=== PATIENT | female | born 1985 | race Caucasian/White ===

== ENCOUNTER → 2016-05-31 | Outpatient (CLI) | payer OTHER ==
[~2016-05-31] MED LIST: BOTULINUM INJ 100 UNITS (J0585) XX ONE; diazePAM 5 MG TAB As Ordered ONE; oxyCODONE 5MG TAB As Ordered ONE
--- NOTE | 2016-06-03 01:29 | ECWPNPC ---
PATIENT NAME: ARBEN ROACH : 1985 GENDER: FEMALE VISIT DATE: 05/31/2016 DISCHARGE DATE: 05/31/16 1043 VISIT LOCKED DATE TIME: PHYSICIAN: MARYJANE ETIENNE RESOURCE: MARYJANE ETIENNE REASON FOR APPOINTMENT 1. BTX HISTORY OF PRESENT ILLNESS HISTORY OF PRESENT ILLNESS: PAIN THE PATIENT DESCRIBES THE PAIN... FALL RISK SCREENING: SCREENING :ONE FALL WITH INJURY IN THE PAST YEAR TRIPPED OVER TOYS ON STEPS AND FELL DOWN 16 STEPS CURRENT MEDICATIONS TAKING KLONOPIN 1 MG TABLET 1 TABLET ORALLY TWICE A DAY, NOTES: 5 DAYS AGO TAKING XANAX 2 MG TABLET 1 TABLET ORALLY PRN, NOTES: @0700 TAKING AMBIEN 10 MG TABLET 1 TABLET AT BEDTIME NEEDED ORALLY DAILY AT HS, NOTES: 05/30/16@2145 TAKING TRAZODONE HCL 200 MG TABLET 1 TABLET AT BEDTIME ORALLY ONCE A DAY, NOTES: 05/30/16@2130 TAKING FLEXERIL 10 MG TABLET 1 TABLET ORALLY THREE TIMES A DAY, NOTES: 05/30/16@1800 TAKING LYRICA 75 MG CAPSULE 1 CAPSULE ORALLY QID, NOTES: 05/30/16@1800 TAKING VITAMIN D 5000 CAPSULE 1 CAPSULE ORALLY ONCE A DAY, NOTES: 05/30/16@0830 TAKING LIDOCAINE 5 % PATCH 1 PATCH TO INTACT SKIN REMOVE AFTER 12 HOURS EXTERNALLY ONCE A DAY, NOTES: 05/30/16@1200 TAKING MULTI FOR HER 50+ TABLET 1 TAB ORALLY BID, NOTES: 05/30/16@0830 TAKING OXYCODONE HCL 5 MG TABLET 1 TABLET ORALLY EVERY 6 HRS, NOTES: 05/30/16@2300 TAKING MAGNESIUM 250 MG TABLET 1 TABLET WITH A MEAL ORALLY ONCE A DAY, NOTES: 05/30/16@0830 NOT-TAKING PERCOCET 5-325 MG TABLET 1 TABLET NEEDED ORALLY EVERY4- 6 HRS, NOTES: 12-07-15 1000 NOT-TAKING VOLTAREN 1 % GEL EXTERNALLY APPLY TO PAINFUL AREAS 4-6 TIMES DAILY NEEDED, NOTES: 12-07-15 0100 NOT-TAKING CYMBALTA 30 MG CAPSULE DELAYED RELEASE PARTICLES 1 CAPSULE ORALLY TWICE A DAY NOT-TAKING PREDNISONE TAPER 2.5 MG TABLET 1 TABLET ORALLY ONCE A DAY NOT-TAKING PREDNISONE 1 TAB ORAL , NOTES: DOSE PACK MEDICATION LIST REVIEWED AND RECONCILED WITH THE PATIENT PAST MEDICAL HISTORY SYSTEMIC LUPUS COMPLEX REGIONAL PAIN STNDROME DISC AND BONE DEGENERATION NERVE DAMAGE LEFT SIDE AND RIGHT LEG ARTHRITIS SPINAL STEOSIS AND BULGING DISCS TORN MUSCLES LIGAMENTS FX T7 ANXIETY INSOMNIA PTSD LEFT SHOULDER CYST CARPEL ROBERT BIALTERAL WRIST PINCHED NERVE IN LEFT ELBOW ALLERGIES THIOTHIXENE: STROKE LIKE SYMPTOMS: ALLERGY SOCIAL HISTORY GENERAL: TOBACCO USE ARE YOU A:NONSMOKER LEARNING BARRIERS / SPECIAL NEEDS ORIENTED TO PLAN OF CARE: PATIENT, PAIN MANAGEMENT PATIENT, ORIENTED TO PLAN OF CARE: PATIENT, PAIN MANAGEMENT PATIENT. NEW PATIENT PAIN DIARY TODAY'S VISITNOTES FROM 0-10, WHAT LEVEL IS YOUR PAIN TODAY?0 PAIN CLINIC PFS, CLERGY, PUBLIC HEALTH REFERRALS PFS REFERRAL NEEDED?NO CLERGY REFERRAL NEEDED?NO PUBLIC HEALTH REFERRAL NEEDED?NO WAS THE PROVIDER NOTIFIED OF ANY PERTINENT INFO?NO PFS REFERRAL NEEDED?NO CLERGY REFERRAL NEEDED?NO PUBLIC HEALTH REFERRAL NEEDED?NO WAS THE PROVIDER NOTIFIED OF ANY PERTINENT INFO?NO REVIEW OF SYSTEMS CONSTITUTIONAL: ANY CHANGE IN YOUR MEDICAL CONDITION? YES, HIP PAIN . CHILLS NO . FEVER NO . INFECTION: DO YOU HAVE NEW INFECTIONS? NO . DO YOU HAVE HISTORY OF MRSA? NO . MUSCULOSKELETAL: ANY NEW PATTERNS OF PAIN OR NUMBNESS? YES,HANDS CONTORTING, NECK SHARP PAIN, SCALP TINGLING . GASTROENTEROLOGY: ANY NEW CHANGE IN BOWEL CONTROL? NO . GENITOURINARY: ANY NEW CHANGE IN BLADDER CONTROL? NO . IS THERE A CHANCE YOU COULD BE ? NO . HEMATOLOGY/LYMPH: DO YOU TAKE ANY BLOOD THINNERS? (FOR EXAMPLE- COUMADIN, PLAVIX, AGGRENOX, PLATEL, PRADAXA, OR XARELTO) NO . WHEN WAS YOUR LAST DOSE? DATE: TIME: . NEUROLOGY: HAVE YOU FALLEN IN THE PAST 6 MONTHS? YES . ANY NEW EXTREMITY NUMBNESS OR WEAKNESS? NO . CARDIOLOGY: DO YOU HAVE A PACEMAKER OR DEFIBRILLATOR? NO . RESPIRATORY: HAVE YOU BEEN SICK IN THE PAST WEEK? NO . FEVER NO . FLU LIKE SYMPTOMS? NO . COUGH NO . INTEGUMENTARY: DO YOU HAVE ANY RASHES OR OPEN SORES? NO . ALLERGIC/IMMUNO: ARE YOU ALLERGIC TO SHELLFISH OR IV DYE? NO . ANY NEW ALLERGIES? NO . PSYCHIATRIC: DO YOU HAVE THOUGHTS OF HURTING YOURSELF OR SOMEONE ELSE? NO . ARE YOU ABUSED, NEGLECTED, OR IN AN UNSAFE ENVIRONMENT? NO . ENDOCRINOLOGY: ARE YOU DIABETIC? NO . OTHER: DO YOU NEED ANY PRESCRIPTIONS? NO . IF YES, PLEASE LIST: ____ . ANY NEW PROBLEMS WITH YOUR MEDICATIONS? NO . WHEN DID YOU LAST EAT? ____05/30/16@0000 . WHEN DID YOU LAST DRINK? ____05/31/16@0700 . WHAT DID YOU LAST DRINK? ____WATER . NAME OF PERSON DRIVING YOU HOME? ____TANIKA MARLEY . DO YOU HAVE ANY OTHER QUESTIONS OR CONCERNS LAST BOTOX INJECTION HAD AN ISSUE WITH RIGHT EYE . REVIEWED BY: PROVIDER: . VITAL SIGNS WT 238 LBS, HT 70 IN, BMI 34.15 INDEX, BP 111/59 MM HG, HR 87 /MIN, RR 16 /MIN, TEMP 96.7 F, OXYGEN SAT % 100%, NA INITIALS SC 09:09, REVIEWED BY: VD. ASSESSMENTS CHRONIC MIGRAINE WITHOUT AURA, NOT INTRACTABLE, WITHOUT STATUS MIGRAINOSUS - G43.709 (PRIMARY) PROCEDURES PN BOTOX INJECTIONS SUBSEQUENT INJECTIONS PRE PROCEDURE DIAGNOSIS CHRONIC MIGRAINE HEADACHES POST PROCEDURE DIAGNOSIS CHRONIC MIGRAINE HEADACHES PROCEDURE BOTOX INJECTION AT THE HEAD, NECK AND SHOULDERS SURGEON DR. MARYJANE ETIENNE ORDER CHECKER NONE ANESTHESIA NONE PRE PROCEDURE NOTE THE PATIENT HAS HISTORY OF CHRONIC MIGRAINE HEADACHES. I EVALUATE THE PATIENT AND REVIEWED THE CHART. I WENT OVER THE RISKS, ALTERNATIVES, AND BENEFITS ASSOCIATED WITH THIS PROCEDURE. THE PATIENT WOULD LIKE TO PROCEED AND GIVE CONSENT TO PERFORMED THE PROCEDURE. THE PATIENT DENIES UNEXPLAINABLE WEIGHT LOSS, FEVER, CHILLS, OR NEW CHANGES IN URINARY OR BOWEL CONTROL. THE PATIENT DID A BOTOX INJECTION AT THE HEAD, NECK AND SHOULDERS IN NOVEMBER AND EXPRESSED MORE THAN 50% REDUCTION ON THE FREQUENCY AND INTENSITY OF THE HEADACHES. UNFORTUNATELY SHE WAS NOT ABLE TO REPEAT THE BOTOX UNTIL NOW. HER HEADACHES HAVE RETURNED. SHE IS HAVING 30 HEADACHES PER MONTH. THE PATIENT EXPRESS THAT THE USE OF BOTOX HAS REDUCE SIGNIFICANTLY THE SEVERITY OF THE HEADACHES IN THE PAST AND EXPRESSED THAT WANT TO RECEIVE THIS PROCEDURE AGAIN TODAY. DESCRIPTION OF PROCEDURE THE PATIENTS WAS BROUGHT TO THE PROCEDURE ROOM AND PLACED IN THE SUPINE POSITION. I CHECKED LATERALITY AND THE AREAS WHERE THE PROCEDURE WAS GOING TO BE PERFORMED WITH THE PATIENT AND THE SUPPORTING STAFF AT THE MOMENT OF THE TIME OUT IN THE PROCEDURE ROOM. FOR THE PROCEDURE I USED A SOLUTION OF 5 UNITS OF BOTOX PER EACH 0.1 ML OF THE SOLUTION. I USED A 30-GAUGE NEEDLE TO INJECT THE SOLUTION AT THE SELECTED LOCATIONS. I INJECTED FIRST THE RIGHT AND LEFT CONCRETE FENCE BUILDER MUSCLES. THE LANDMARK FOR BOTH INJECTIONS WAS APPROXIMATELY 1 CM ABOVE THE SUPERIOR MEDIAL EDGE OF THE EYEBROW. AFTER THESE TWO INJECTIONS, I INJECTED THE PROCERUS MUSCLE AT THE MIDLINE POINT BETWEEN THESE FIRST TWO INJECTIONS. THEN I PROCEEDED TO INJECT THE RIGHT AND LEFT FRONTALIS MUSCLE. TWO INJECTIONS WERE DONE IN EACH SIDE. THE FIRST INJECTION WAS DONE APPROXIMATELY 2 CM ABOVE THE FIRST INJECTION OF THE CONCRETE FENCE BUILDER. THE SECOND INJECTION WAS DONE APPROXIMATELY 1.5 CM LATERAL TO THIS FIST INJECTION OF THE FRONTALIS OF EACH SIDE. AFTER THE INJECTIONS OVER THE FOREHEAD WERE DONE, THE PATIENT'S HEAD WAS TURNED TO THE LEFT SIDE AND WE STARTED TO WORK WITH THE RIGHT TEMPORALIS MUSCLE. FIRST INJECTION WAS DONE IN A VERTICAL LINE OF THE TRAGUS APPROXIMATELY 3 CM ABOVE THE TRAGUS. THE SECOND INJECTION WAS DONE APPROXIMATELY 2 CM ABOVE THE FIRST INJECTION. THE THIRD INJECTION WAS DONE APPROXIMATELY 1 CM FRONT PAZ FROM THIS VERTICAL LINE CREATED AT THE LEVEL OF THE TRAGUS, PRISON BETWEEN THESE TWO INJECTIONS. THE FOURTH INJECTION WAS DONE APPROXIMATELY 1.5 CM BACK FROM THE SECOND INJECTION TO THE TEMPORALIS IN LINE TO THE MIDPORTION OF THE EAR. THEN, WE PROCEEDED TO INJECT THE LEFT TEMPORALIS MUSCLE. WE CLEANED THE AREA WITH ALCOHOL AND PROCEEDED TO PERFORM THE SAME FOR INJECTIONS DESCRIBED ABOVE BUT IN THE LEFT TEMPORALIS MUSCLE USING THE SAME LANDMARKS. AFTER THESE INJECTIONS WERE DONE, THE PATIENT WAS SEATED. FIRST, WE STARTED TO INJECT THE LEFT AND RIGHT OCCIPITALIS MUSCLE. I INJECTED AT THE FOLLOWING PLACES IN THE RIGHT AND LEFT MUSCLE. THE FIRST INJECTION WAS DONE AT THE MIDPOINT POSITION BETWEEN THE MASTOID PROCESS AND THE INION OF THE OCCIPITAL PROTUBERANCE. THE SECOND INJECTION WAS DONE APPROXIMATELY 1.5 CM SUPERIOR AND LATERAL OF THIS POINT. THE THIRD INJECTION WAS DONE APPROXIMATELY 1.5 CM SUPERIOR AND MEDIAL TO THIS FIRST INJECTION. THEN, I PROCEEDED TO INJECT THE RIGHT AND LEFT PARASPINAL MUSCLES. LANDMARK OF THE INJECTION WERE APPROXIMATELY: FIRST INJECTION 3 CM BELOW THE INION AND 1 CM LATERAL TO THE MIDLINE AND SECOND INJECTION AT EACH SIDE WAS DONE APPROXIMATELY 1.5 CM SUPERIOR AND LATERAL OF THE FIRST INJECTION. THE LAST GROUP OF INJECTIONS WAS DONE OVER THE RIGHT AND LEFT TRAPEZIUS MUSCLE OVER THE SHOULDERS AREA. THE FIRST INJECTION WAS DONE AT THE MIDPOINT BETWEEN THE INFLECTION POINT BETWEEN THE NECK AND SHOULDER AND THE ACROMION. THE SECOND AND THIRD INJECTIONS WERE DONE APPROXIMATELY 2.5 CM LATERAL AND MEDIAL FROM THIS FIRST INJECTION. SAME TARGETS WERE USED IN THE RIGHT AND LEFT SIDE. IN TOTAL, I INJECTED 155 UNITS OF BOTOX. PROCEDURE WAS DONE WITHOUT EVIDENCE OF PARESTHESIA, PNEUMOTHORAX, OR ANY COMPLICATIONS. THE PATIENT TOLERATED THE PROCEDURE VERY WELL. THE PATIENT WAS SENT TO THE RECOVERY ROOM FOR OBSERVATIONS. INJECTIONS WERE DONE AFTER CLEANING WITH ALCOHOL, USING ASEPTIC TECHNIQUES POST PROCEDURE NOTE THE PROCEDURE DONE WAS DISCUSSED WITH THE PATIENT. THE PATIENT WILL BE SEEN IN A FOLLOW UP IN THE NEXT FEW WEEKS. INSTRUCTIONS WERE GIVEN, QUESTIONS WERE ANSWERED, AND THE PATIENT EXPRESSED UNDERSTANDING AND AGREES WITH THE PLAN. I, WEI JULIEN, DOCUMENTED THE ABOVE INFORMATION ACTING A SCRIBE FOR DR. ETIENNE. I, DR. ETIENNE, HAVE REVIEWED THE ABOVE DOCUMENT, SCRIBED BY WEI JULIEN, AND I VERIFY THAT IT IS ACCURATE PROCEDURE CODES 36746 [facility] MIGRAINE FOLLOW UP 3 WEEKS ELECTRONICALLY SIGNED BY MARYJANE ETIENNE MD ON 06/02/2016 AT 06:23 PM EST DISCLAIMER : THIS IS A VISIT SUMMARY EXTRACTED FROM THE [employer] CHART. IT IS NOT A COPY OF THE [employer] PROGRESS NOTE. [employer]
== END ==
LOC: M PAIN 09:00
PROVIDERS: ATTEND Anesthesiology
DX: G43.709 Chronic migraine without aura, not intractable, without status migrainosus (principal); M32.9 Systemic lupus erythematosus, unspecified; G90.50 Complex regional pain syndrome I, unspecified; M51.9 Unspecified thoracic, thoracolumbar and lumbosacral intervertebral disc disorder; M19.90 Unspecified osteoarthritis, unspecified site; M48.00 Spinal stenosis, site unspecified; F41.9 Anxiety disorder, unspecified; G47.00 Insomnia, unspecified; F43.10 Post-traumatic stress disorder, unspecified; Z88.8 Allergy status to other drugs, medicaments and biological substances; Z79.891 Long term (current) use of opiate analgesic; Z79.899 Other long term (current) drug therapy
CPT/HCPCS: 64615; J0585

== ENCOUNTER → 2016-06-01 | Outpatient (CLI) | payer OTHER ==
[~2016-06-01] MED LIST changes: +ATROPINE SULF 1MG/10ML SYRINGE (J0461) As Ordered ONE; -BOTULINUM INJ 100 UNITS (J0585) XX ONE; +BUPIVACAINE HCL 0.25% 10 ML VIAL As Ordered ONE; +BUPIVACAINE HCL 0.25% 30 ML VIAL As Ordered ONE; +TRIAMCINOLONE ACETONIDE SUSP 40 MG/ML VIAL (J3301) As Ordered ONE
--- NOTE | 2016-06-05 23:23 | ECWPNPC ---
PATIENT NAME: ARBEN ROACH : 1985 GENDER: FEMALE VISIT DATE: 06/01/2016 DISCHARGE DATE: 06/01/16 1029 VISIT LOCKED DATE TIME: PHYSICIAN: MARYJANE ETIENNE RESOURCE: MARYJANE ETIENNE REASON FOR APPOINTMENT 1. TPI- RIGHT AND LEFT THORACIC AREA HISTORY OF PRESENT ILLNESS HISTORY OF PRESENT ILLNESS: PAIN THE PATIENT DESCRIBES THE PAIN... FALL RISK SCREENING: SCREENING :NO FALLS IN THE PAST YEAR CURRENT MEDICATIONS TAKING KLONOPIN 1 MG TABLET 1 TABLET ORALLY TWICE A DAY, NOTES: 6 DAYS AGO TAKING XANAX 2 MG TABLET 1 TABLET ORALLY PRN, NOTES: @0700 TAKING AMBIEN 10 MG TABLET 1 TABLET AT BEDTIME NEEDED ORALLY DAILY AT HS, NOTES: 05/31/16@2145 TAKING TRAZODONE HCL 200 MG TABLET 1 TABLET AT BEDTIME ORALLY ONCE A DAY, NOTES: 05/31/16@2130 TAKING FLEXERIL 10 MG TABLET 1 TABLET ORALLY THREE TIMES A DAY, NOTES: 05/31/16@1800 TAKING LYRICA 75 MG CAPSULE 1 CAPSULE ORALLY QID, NOTES: 05/31/16@1800 TAKING VITAMIN D 5000 CAPSULE 1 CAPSULE ORALLY ONCE A DAY, NOTES: 05/31/16@0830 TAKING LIDOCAINE 5 % PATCH 1 PATCH TO INTACT SKIN REMOVE AFTER 12 HOURS EXTERNALLY ONCE A DAY, NOTES: 05/30/16@1200 TAKING MULTI FOR HER 50+ TABLET 1 TAB ORALLY BID, NOTES: 05/31/16@2130 TAKING OXYCODONE HCL 5 MG TABLET 1 TABLET ORALLY EVERY 6 HRS, NOTES: 05/30/16@2300 TAKING MAGNESIUM 250 MG TABLET 1 TABLET WITH A MEAL ORALLY ONCE A DAY, NOTES: 06/01/16@0400 NOT-TAKING PERCOCET 5-325 MG TABLET 1 TABLET NEEDED ORALLY EVERY4- 6 HRS, NOTES: 12-07-15 1000 NOT-TAKING VOLTAREN 1 % GEL EXTERNALLY APPLY TO PAINFUL AREAS 4-6 TIMES DAILY NEEDED, NOTES: 12-07-15 0100 NOT-TAKING CYMBALTA 30 MG CAPSULE DELAYED RELEASE PARTICLES 1 CAPSULE ORALLY TWICE A DAY NOT-TAKING PREDNISONE TAPER 2.5 MG TABLET 1 TABLET ORALLY ONCE A DAY NOT-TAKING PREDNISONE 1 TAB ORAL , NOTES: DOSE PACK MEDICATION LIST REVIEWED AND RECONCILED WITH THE PATIENT PAST MEDICAL HISTORY SYSTEMIC LUPUS COMPLEX REGIONAL PAIN STNDROME DISC AND BONE DEGENERATION NERVE DAMAGE LEFT SIDE AND RIGHT LEG ARTHRITIS SPINAL STEOSIS AND BULGING DISCS TORN MUSCLES LIGAMENTS FX T7 ANXIETY INSOMNIA PTSD LEFT SHOULDER CYST CARPEL ROBERT BIALTERAL WRIST PINCHED NERVE IN LEFT ELBOW ALLERGIES THIOTHIXENE: STROKE LIKE SYMPTOMS: ALLERGY SOCIAL HISTORY GENERAL: TOBACCO USE ARE YOU A:NONSMOKER LEARNING BARRIERS / SPECIAL NEEDS ORIENTED TO PLAN OF CARE: PATIENT, PAIN MANAGEMENT PATIENT, ORIENTED TO PLAN OF CARE: PATIENT, PAIN MANAGEMENT PATIENT. NEW PATIENT PAIN DIARY TODAY'S VISITNOTES FROM 0-10, WHAT LEVEL IS YOUR PAIN TODAY?0 PAIN CLINIC PFS, CLERGY, PUBLIC HEALTH REFERRALS PFS REFERRAL NEEDED?NO CLERGY REFERRAL NEEDED?NO PUBLIC HEALTH REFERRAL NEEDED?NO WAS THE PROVIDER NOTIFIED OF ANY PERTINENT INFO?NO PFS REFERRAL NEEDED?NO CLERGY REFERRAL NEEDED?NO PUBLIC HEALTH REFERRAL NEEDED?NO WAS THE PROVIDER NOTIFIED OF ANY PERTINENT INFO?NO REVIEW OF SYSTEMS CONSTITUTIONAL: ANY CHANGE IN YOUR MEDICAL CONDITION? NO . CHILLS NO . FEVER NO . INFECTION: DO YOU HAVE NEW INFECTIONS? NO . DO YOU HAVE HISTORY OF MRSA? NO . MUSCULOSKELETAL: ANY NEW PATTERNS OF PAIN OR NUMBNESS? NO . GASTROENTEROLOGY: ANY NEW CHANGE IN BOWEL CONTROL? NO . GENITOURINARY: ANY NEW CHANGE IN BLADDER CONTROL? NO . IS THERE A CHANCE YOU COULD BE ? NO . HEMATOLOGY/LYMPH: DO YOU TAKE ANY BLOOD THINNERS? (FOR EXAMPLE- COUMADIN, PLAVIX, AGGRENOX, PLATEL, PRADAXA, OR XARELTO) NO . WHEN WAS YOUR LAST DOSE? DATE: TIME: . NEUROLOGY: HAVE YOU FALLEN IN THE PAST 6 MONTHS? NO . ANY NEW EXTREMITY NUMBNESS OR WEAKNESS? NO . CARDIOLOGY: DO YOU HAVE A PACEMAKER OR DEFIBRILLATOR? NO . RESPIRATORY: HAVE YOU BEEN SICK IN THE PAST WEEK? NO . FEVER NO . FLU LIKE SYMPTOMS? NO . COUGH NO . INTEGUMENTARY: DO YOU HAVE ANY RASHES OR OPEN SORES? NO . ALLERGIC/IMMUNO: ARE YOU ALLERGIC TO SHELLFISH OR IV DYE? NO . ANY NEW ALLERGIES? NO . PSYCHIATRIC: DO YOU HAVE THOUGHTS OF HURTING YOURSELF OR SOMEONE ELSE? NO . ARE YOU ABUSED, NEGLECTED, OR IN AN UNSAFE ENVIRONMENT? NO . ENDOCRINOLOGY: ARE YOU DIABETIC? NO . OTHER: DO YOU NEED ANY PRESCRIPTIONS? NO . IF YES, PLEASE LIST: ____ . ANY NEW PROBLEMS WITH YOUR MEDICATIONS? NO . WHEN DID YOU LAST EAT? ____06/01/16@1800 . WHEN DID YOU LAST DRINK? ____05/31/16@2130 . WHAT DID YOU LAST DRINK? ____WATER . NAME OF PERSON DRIVING YOU HOME? ____TANIKA ROACH . DO YOU HAVE ANY OTHER QUESTIONS OR CONCERNS NO . REVIEWED BY: PROVIDER: . VITAL SIGNS WT 238 LBS, HT 70 IN, BMI 34.15 INDEX, BP 141/73 MM HG, HR 91 /MIN, RR 16 /MIN, TEMP 96.2 F, OXYGEN SAT % 98%, NA INITIALS SC 09:08, REVIEWED BY: VD. ASSESSMENTS MYALGIA - M79.1 (PRIMARY) PROCEDURES PN TRIGGER POINT INJECTION WITH STEROIDS PRE PROCEDURE DIAGNOSIS 1. MYALGIA 2. PAIN AT BILATERAL THORACIC AREA AND BILATERAL NECK AREA POST PROCEDURE DIAGNOSIS 1. MYALGIA 2. PAIN AT BILATERAL THORACIC AREA AND BILATERAL NECK AREA PROCEDURE TRIGGER POINT INJECTION AT BILATERAL THORACIC AREA AND BILATERAL NECK AREA SURGEON DR. MARYJANE ETIENNE COCOA PRESS OPERATOR NONE ANESTHESIA LOCAL PRE PROCEDURE NOTE THE PATIENT HAS A HISTORY OF CHRONIC PAIN AT THE RIGHT AND LEFT THORACIC AREA AND RIGHT AND LEFT NECK AREA. I EVALUATE THE PATIENT AND REVIEWED THE CHART. THERE IS EVIDENCE OF BANDS OF TISSUE WITH RESTRICTION OF MOVEMENT AND PRESENCE OF TRIGGER POINT AT THE AFFECTED AREA. I WENT OVER THE RISKS, ALTERNATIVES, AND BENEFITS ASSOCIATED WITH THIS PROCEDURE. THE PATIENT WOULD LIKE TO PROCEED AND GIVE CONSENT TO PERFORMED THE PROCEDURE. THE PATIENT DENIES UNEXPLAINABLE WEIGHT LOSS, FEVER, CHILLS, OR NEW CHANGES IN URINARY OR BOWEL CONTROL DESCRIPTION OF PROCEDURE THE PATIENT WAS BROUGHT TO THE PROCEDURE ROOM AND PLACED IN THE SITTING POSITION. THE AREA WAS CLEANED WITH ALCOHOL. THE PROCEDURE WAS DONE USING ASEPTIC STERILE TECHNIQUE. I CHECKED LATERALITY AND THE LEVEL WHERE THE PROCEDURE WAS GOING TO BE PERFORMED WITH THE PATIENT AND THE SUPPORTING STAFF AT THE MOMENT OF THE TIME OUT IN THE PROCEDURE ROOM. USING A 25-GAUGE NEEDLE, TRIGGER POINTS WERE INJECTED AT THE RIGHT AND LEFT THORACIC AREA AND RIGHT AND LEFT NECK AREA WITH A TOTAL OF 40 ML OF BUPIVACAINE 0.25% AND KENALOG 40 MG. THERE WAS NO EVIDENCE OF BLOOD, PARESTHESIA OR CEREBROSPINAL FLUID DURING THE PROCEDURE. THE PATIENT WAS SENT TO THE RECOVERY ROOM. THE PATIENT WAS MOVING THE EXTREMITIES AND DOING WELL. THERE WAS NO COMPLICATION DURING THE PROCEDURE POST PROCEDURE NOTE THE PATIENT WILL BE SEEN IN A FOLLOW UP IN THE NEXT FEW WEEKS. INSTRUCTIONS WERE GIVEN, QUESTIONS WERE ANSWERED, AND THE PATIENT EXPRESSED UNDERSTANDING AND AGREES WITH THE PLAN. INSTRUCTIONS WERE GIVEN, QUESTIONS WERE ANSWERED, PATIENT REPORTS UNDERSTANDING AND AGREES WITH THE PLAN. I, DARYL INGRAM, DOCUMENTED THE ABOVE INFORMATION ACTING A SCRIBE FOR DR. ETIENNE. I HAVE REVIEWED THE ABOVE DOCUMENT, WRITTEN BY DARYL INGRAM SCRIBE AND I VERIFY THAT IT IS ACCURATE. PROCEDURE CODES 98471 INJECT TRIGGER POINTS 3/> FOLLOW UP 3 WEEKS ELECTRONICALLY SIGNED BY MARYJANE ETIENNE MD ON 06/05/2016 AT 09:24 PM EST DISCLAIMER : THIS IS A VISIT SUMMARY EXTRACTED FROM THE [employer] CHART. IT IS NOT A COPY OF THE [employer] PROGRESS NOTE. [employer]
== END ==
LOC: M PAIN 09:00
PROVIDERS: ATTEND Anesthesiology
DX: M79.1 Myalgia (principal); G89.29 Other chronic pain; M54.2 Cervicalgia; M54.6 Pain in thoracic spine; Z79.891 Long term (current) use of opiate analgesic; Z79.899 Other long term (current) drug therapy; Z88.8 Allergy status to other drugs, medicaments and biological substances
CPT/HCPCS: 20553; J3301

== ENCOUNTER → 2016-06-23 | Outpatient (CLI) | payer OTHER ==
--- NOTE | 2016-07-13 01:45 | ECWPNPC ---
PATIENT NAME: ARBEN ROACH : 1985 GENDER: FEMALE VISIT DATE: 06/23/2016 DISCHARGE DATE: 06/23/16 1138 VISIT LOCKED DATE TIME: PHYSICIAN: DERRICK ACUNA RESOURCE: DERRICK ACUNA REASON FOR APPOINTMENT 1. POST BOTOX & TPI HISTORY OF PRESENT ILLNESS HISTORY OF PRESENT ILLNESS: PAIN THE PATIENT DESCRIBES THE PAIN... FALL RISK SCREENING: SCREENING :NO FALLS IN THE PAST YEAR TODAY'S VISIT: NOTES: S/P BOTOX FOR MIGRAINE PROPHYLAXIS ON 05/31/16 AND TRIGGER POINT INJECTIONS ON 06/01/16 TO THE LOWER BACK. RATES PAIN LEVEL TODAY 6-7/10. DESCRIBES PAIN INTERMITTANT, ACHING, SHARP AND STABBING, TENDER AND SHOOTING. PAIN IS CENTERED AT BASE OF NECK AND BACK OF HEAD WITH RADIATING DOWN LEFT ARM TO THE LEVEL OF THE HAND. STATES IS GETTING A MIGRAINE TODAY. HAS SINCE SEEN RHEUMATOLOGY AND WAS GIVEN DX OF SLE. HAS BEEN STARTED ON PREDNISONE AND PLAQUENIL. DR MACK IS REFERRING TO [facility] TO A NEUROSURGEON. TPI HELDED FOR A FEW DAYS. HAS HAD VERY MILD ALMOST NOTHING MIGRAINE HEADACHES. IS NOW ABLE TO FUNCTION. WAS RECENTLY CHANGED TO IMITREX FROM [facility]. . CURRENT MEDICATIONS TAKING KLONOPIN 1 MG TABLET 1 TABLET ORALLY TWICE A DAY, NOTES: 6 DAYS AGO TAKING XANAX 2 MG TABLET 1 TABLET ORALLY PRN, NOTES: @0700 TAKING AMBIEN 10 MG TABLET 1 TABLET AT BEDTIME NEEDED ORALLY DAILY AT HS, NOTES: 05/31/16@2145 TAKING TRAZODONE HCL 200 MG TABLET 1 TABLET AT BEDTIME ORALLY ONCE A DAY, NOTES: 05/31/16@2130 TAKING FLEXERIL 10 MG TABLET 1 TABLET ORALLY THREE TIMES A DAY, NOTES: 05/31/16@1800 TAKING LYRICA 75 MG CAPSULE 1 CAPSULE ORALLY QID, NOTES: 05/31/16@1800 TAKING VITAMIN D 5000 CAPSULE 1 CAPSULE ORALLY ONCE A DAY, NOTES: 05/31/16@0830 TAKING LIDOCAINE 5 % PATCH 1 PATCH TO INTACT SKIN REMOVE AFTER 12 HOURS EXTERNALLY ONCE A DAY, NOTES: 05/30/16@1200 TAKING MULTI FOR HER 50+ TABLET 1 TAB ORALLY BID, NOTES: 05/31/16@2130 TAKING OXYCODONE HCL 5 MG TABLET 1 TABLET ORALLY EVERY 6 HRS, NOTES: 05/30/16@2300 TAKING MAGNESIUM 250 MG TABLET 1 TABLET WITH A MEAL ORALLY ONCE A DAY, NOTES: 06/01/16@0400 TAKING IMITREX 100 MG TABLET 1 TABLET NEEDED ORALLY TWICE A DAY TAKING PREDNISONE 5 MG TABLET 1 TABLET ORALLY TWICE A DAY TAKING PLAQUENIL 200 MG TABLET 1 TABLET WITH FOOD OR MILK ORALLY TWICE A DAY NOT-TAKING PERCOCET 5-325 MG TABLET 1 TABLET NEEDED ORALLY EVERY4- 6 HRS, NOTES: 12-07-15 1000 NOT-TAKING VOLTAREN 1 % GEL EXTERNALLY APPLY TO PAINFUL AREAS 4-6 TIMES DAILY NEEDED, NOTES: 12-07-15 0100 NOT-TAKING CYMBALTA 30 MG CAPSULE DELAYED RELEASE PARTICLES 1 CAPSULE ORALLY TWICE A DAY NOT-TAKING PREDNISONE TAPER 2.5 MG TABLET 1 TABLET ORALLY ONCE A DAY NOT-TAKING PREDNISONE 1 TAB ORAL , NOTES: DOSE PACK MEDICATION LIST REVIEWED AND RECONCILED WITH THE PATIENT PAST MEDICAL HISTORY SYSTEMIC LUPUS COMPLEX REGIONAL PAIN STNDROME DISC AND BONE DEGENERATION NERVE DAMAGE LEFT SIDE AND RIGHT LEG ARTHRITIS SPINAL STEOSIS AND BULGING DISCS TORN MUSCLES LIGAMENTS FX T7 ANXIETY INSOMNIA PTSD LEFT SHOULDER CYST CARPEL ROBERT BIALTERAL WRIST PINCHED NERVE IN LEFT ELBOW ALLERGIES THIOTHIXENE: STROKE LIKE SYMPTOMS: ALLERGY SOCIAL HISTORY GENERAL: TOBACCO USE ARE YOU A:NONSMOKER LEARNING BARRIERS / SPECIAL NEEDS ORIENTED TO PLAN OF CARE: PATIENT, PAIN MANAGEMENT PATIENT, ORIENTED TO PLAN OF CARE: PATIENT, PAIN MANAGEMENT PATIENT. NEW PATIENT PAIN DIARY TODAY'S VISITNOTES FROM 0-10, WHAT LEVEL IS YOUR PAIN TODAY?0 PAIN CLINIC PFS, CLERGY, PUBLIC HEALTH REFERRALS PFS REFERRAL NEEDED?NO CLERGY REFERRAL NEEDED?NO PUBLIC HEALTH REFERRAL NEEDED?NO WAS THE PROVIDER NOTIFIED OF ANY PERTINENT INFO?NO PFS REFERRAL NEEDED?NO CLERGY REFERRAL NEEDED?NO PUBLIC HEALTH REFERRAL NEEDED?NO WAS THE PROVIDER NOTIFIED OF ANY PERTINENT INFO?NO REVIEW OF SYSTEMS CONSTITUTIONAL: ANY CHANGE IN YOUR MEDICAL CONDITION? NO . CHILLS NO . FEVER NO . INFECTION: DO YOU HAVE NEW INFECTIONS? NO . DO YOU HAVE HISTORY OF MRSA? NO . MUSCULOSKELETAL: ANY NEW PATTERNS OF PAIN OR NUMBNESS? NO . GASTROENTEROLOGY: ANY NEW CHANGE IN BOWEL CONTROL? NO . GENITOURINARY: ANY NEW CHANGE IN BLADDER CONTROL? NO . IS THERE A CHANCE YOU COULD BE ? NO . HEMATOLOGY/LYMPH: DO YOU TAKE ANY BLOOD THINNERS? (FOR EXAMPLE- COUMADIN, PLAVIX, AGGRENOX, PLATEL, PRADAXA, OR XARELTO) NO . WHEN WAS YOUR LAST DOSE? DATE: TIME: . NEUROLOGY: HAVE YOU FALLEN IN THE PAST 6 MONTHS? YES . ANY NEW EXTREMITY NUMBNESS OR WEAKNESS? NO . CARDIOLOGY: DO YOU HAVE A PACEMAKER OR DEFIBRILLATOR? NO . RESPIRATORY: HAVE YOU BEEN SICK IN THE PAST WEEK? NO . FEVER NO . FLU LIKE SYMPTOMS? NO . COUGH NO . INTEGUMENTARY: DO YOU HAVE ANY RASHES OR OPEN SORES? NO . ALLERGIC/IMMUNO: ARE YOU ALLERGIC TO SHELLFISH OR IV DYE? NO . ANY NEW ALLERGIES? NO . PSYCHIATRIC: DO YOU HAVE THOUGHTS OF HURTING YOURSELF OR SOMEONE ELSE? NO . ARE YOU ABUSED, NEGLECTED, OR IN AN UNSAFE ENVIRONMENT? NO . ENDOCRINOLOGY: ARE YOU DIABETIC? NO . OTHER: DO YOU NEED ANY PRESCRIPTIONS? YES, MIGRAINE MEDS . IF YES, PLEASE LIST: ____ . ANY NEW PROBLEMS WITH YOUR MEDICATIONS? NO . WHEN DID YOU LAST EAT? ____ . WHEN DID YOU LAST DRINK? ____ . WHAT DID YOU LAST DRINK? ____ . NAME OF PERSON DRIVING YOU HOME? ____ . DO YOU HAVE ANY OTHER QUESTIONS OR CONCERNS YES, TPI ONLKY HELPED A FEW DAYS. BOTOX IS MAKING THINGS BETTER- LESS INTENSE AND LESS FREQUENT. . REVIEWED BY: PROVIDER: DERRICK GUERRA . VITAL SIGNS WT 220.8 LBS, HT 70 IN, BMI 31.68 INDEX, BP 115/65 MM HG, HR 94 /MIN, RR 16 /MIN, TEMP 96.0 F, OXYGEN SAT % 100, NA INITIALS TL 1030, REVIEWED BY: CM. EXAMINATION GENERAL EXAMINATION: PSYCHALERT , ORIENTED X 3 , APPROPRIATE MOOD AND AFFECT . LUNGS:CLEAR TO AUSCULTATION BILATERALLY. HEART:HEART RATE REGULAR. MUSCULOSKELETAL:POSITIVE TMJ CLICK, TRIGGER POINTS:, ELICITED WITH PALPATION OVER CERVICAL SPINOUS PROCESSES AND ACROSS THE TRAPEZIUS MUSCLES BILATERALLY AND OVER THE CERVICAL PARASPINOUS MUSCLES. RESTRICTION OF ROM IS NOTED. . SKIN:BRIGHT RED FLUSHING OF THE FACE, ARMS, CHEST. NEUROLOGIC EXAM:. EOMS INTACT WITHOUT NYSTAGMUS, CN'S II-XII GROSSLY INTACT. POINT TENDERNESS PRESENT BILATERALLY OVER THE OCCIPITAL NOTCH. . ASSESSMENTS MYALGIA - M79.1 (PRIMARY) CHRONIC MIGRAINE WITHOUT AURA, NOT INTRACTABLE, WITHOUT STATUS MIGRAINOSUS - G43.709 (PRIMARY) TREATMENT MYALGIA TRIGGER POINT 3 + DERRICK ALMONTE 06/23/2016 11:19:31 AM > NECK, UPPER BACK NOTES: CONSIDER MAXALT, RELPAX OR ZOMIG IF IMITREX NOT HELPFUL.,TRIGGER POINT INJECTION: YOUR EXPERIENCE MATERIAL WAS PRINTED. PREVENTIVE MEDICINE PAIN CLINIC TEACHING: PROCEDURE TEACHING INSTRUCTED PATIENT TO HOLD PLAQUINIL FOR 2 DAYS PRIOR TO INJECTION. PT UNDERSTANDS. . PROCEDURE CODES FA211 ESTABILISHED PATIENT [facility] CHARGE DISPOSITION & COMMUNICATION FOLLOW UP AFTER INJECTION (REASON: CHECK AUTH FOR TPI) ELECTRONICALLY SIGNED BY LORETO HANEY ON 07/12/2016 AT 11:56 AM EST DISCLAIMER : THIS IS A VISIT SUMMARY EXTRACTED FROM THE [employer] CHART. IT IS NOT A COPY OF THE [employer] PROGRESS NOTE. [employer]
== END ==
LOC: M PAIN 10:20
PROVIDERS: ATTEND Nurse Practitioner Family
DX: M79.1 Myalgia (principal); G43.709 Chronic migraine without aura, not intractable, without status migrainosus; M54.5 Low back pain; G89.29 Other chronic pain; Z79.891 Long term (current) use of opiate analgesic; Z79.899 Other long term (current) drug therapy; M32.9 Systemic lupus erythematosus, unspecified; F43.10 Post-traumatic stress disorder, unspecified; F41.9 Anxiety disorder, unspecified; M19.90 Unspecified osteoarthritis, unspecified site; Z88.8 Allergy status to other drugs, medicaments and biological substances

== ENCOUNTER → 2016-07-25 | Outpatient (CLI) | payer OTHER ==
[~2016-07-25] MED LIST changes: -ATROPINE SULF 1MG/10ML SYRINGE (J0461) As Ordered ONE
--- NOTE | 2016-08-02 02:01 | ECWPNPC ---
PATIENT NAME: ARBEN ROACH : 1985 GENDER: FEMALE VISIT DATE: 07/25/2016 DISCHARGE DATE: 07/25/16 1332 VISIT LOCKED DATE TIME: PHYSICIAN: MARYJANE ETIENNE RESOURCE: MARYJANE ETIENNE REASON FOR APPOINTMENT 1. TPI- NECK/UPPER BACK HISTORY OF PRESENT ILLNESS HISTORY OF PRESENT ILLNESS: PAIN THE PATIENT DESCRIBES THE PAIN... FALL RISK SCREENING: SCREENING :NO FALLS IN THE PAST YEAR CURRENT MEDICATIONS TAKING KLONOPIN 1 MG TABLET 1 TABLET ORALLY TWICE A DAY, NOTES: 2 DAYS AGO TAKING XANAX 1 MG TABLET 1 TABLET ORALLY PRN, NOTES: WEEK AGO TAKING AMBIEN 10 MG TABLET 1 TABLET AT BEDTIME NEEDED ORALLY DAILY AT , NOTES: 07-24-162099 TAKING TRAZODONE HCL 200 MG TABLET 1 TABLET AT BEDTIME ORALLY ONCE A DAY, NOTES: 07-24-162099 TAKING LYRICA 150 MG CAPSULE 1 CAPSULE ORALLY BID, NOTES: 07-24-162099 TAKING VITAMIN D 5000 CAPSULE 1 CAPSULE ORALLY ONCE A DAY, NOTES: 07-24-16 AM TAKING LIDOCAINE 5 % PATCH 1 PATCH TO INTACT SKIN REMOVE AFTER 12 HOURS EXTERNALLY ONCE A DAY, NOTES: 07-24-16 TAKING MULTI FOR HER 50+ TABLET 1 TAB ORALLY BID, NOTES: 07-24-16 AM TAKING OXYCODONE HCL 5 MG TABLET 1 TABLET ORALLY EVERY 6 HRS, NOTES: 07-25-16 0700 TAKING MAGNESIUM 250 MG TABLET 1 TABLET WITH A MEAL ORALLY ONCE A DAY, NOTES: 07-24-16 TAKING IMITREX 100 MG TABLET 1 TABLET NEEDED ORALLY TWICE A DAY, NOTES: NONE RECENTLY TAKING PREDNISONE 5 MG TABLET 1 TABLET ORALLY TWICE A DAY, NOTES: 07-24-162099 TAKING PLAQUENIL 200 MG TABLET 1 TABLET WITH FOOD OR MILK ORALLY TWICE A DAY, NOTES: 07-22-16 TAKING SKELAXIN 800 MG TABLET 1/2 TABLET ORALLY FOUR TIMES A DAY, NOTES: 07-24-162099 TAKING OMEPRAZOLE 20 MG CAPSULE DELAYED RELEASE 1 CAPSULE ORALLY ONCE A DAY, NOTES: 07-24-16 AM TAKING BIOTIN 10 MG TABLET 1 TABLET ORALLY ONCE A DAY TAKING VOLTAREN 1 % GEL EXTERNALLY APPLY TO PAINFUL AREAS 4-6 TIMES DAILY NEEDED, NOTES: COUPLE DAYS AGO DISCONTINUED FLEXERIL 10 MG TABLET 1 TABLET ORALLY THREE TIMES A DAY DISCONTINUED PERCOCET 5-325 MG TABLET 1 TABLET NEEDED ORALLY EVERY4- 6 HRS, NOTES: 12-07-15 1000 DISCONTINUED CYMBALTA 30 MG CAPSULE DELAYED RELEASE PARTICLES 1 CAPSULE ORALLY TWICE A DAY DISCONTINUED PREDNISONE TAPER 2.5 MG TABLET 1 TABLET ORALLY ONCE A DAY DISCONTINUED PREDNISONE 1 TAB ORAL , NOTES: DOSE PACK MEDICATION LIST REVIEWED AND RECONCILED WITH THE PATIENT PAST MEDICAL HISTORY SYSTEMIC LUPUS COMPLEX REGIONAL PAIN STNDROME DISC AND BONE DEGENERATION NERVE DAMAGE LEFT SIDE AND RIGHT LEG ARTHRITIS SPINAL STEOSIS AND BULGING DISCS TORN MUSCLES LIGAMENTS FX T7 ANXIETY INSOMNIA PTSD LEFT SHOULDER CYST CARPEL ROBERT BIALTERAL WRIST PINCHED NERVE IN LEFT ELBOW ALLERGIES THIOTHIXENE: STROKE LIKE SYMPTOMS: ALLERGY SOCIAL HISTORY GENERAL: TOBACCO USE ARE YOU A:NONSMOKER LEARNING BARRIERS / SPECIAL NEEDS ORIENTED TO PLAN OF CARE: PATIENT, PAIN MANAGEMENT PATIENT, ORIENTED TO PLAN OF CARE: PATIENT, PAIN MANAGEMENT PATIENT. NEW PATIENT PAIN DIARY TODAY'S VISITNOTES FROM 0-10, WHAT LEVEL IS YOUR PAIN TODAY?0 PAIN CLINIC PFS, CLERGY, PUBLIC HEALTH REFERRALS PFS REFERRAL NEEDED?NO CLERGY REFERRAL NEEDED?NO PUBLIC HEALTH REFERRAL NEEDED?NO WAS THE PROVIDER NOTIFIED OF ANY PERTINENT INFO?NO PFS REFERRAL NEEDED?NO CLERGY REFERRAL NEEDED?NO PUBLIC HEALTH REFERRAL NEEDED?NO WAS THE PROVIDER NOTIFIED OF ANY PERTINENT INFO?NO REVIEW OF SYSTEMS CONSTITUTIONAL: ANY CHANGE IN YOUR MEDICAL CONDITION? NO . CHILLS NO . FEVER NO . INFECTION: DO YOU HAVE NEW INFECTIONS? NO . DO YOU HAVE HISTORY OF MRSA? NO . MUSCULOSKELETAL: ANY NEW PATTERNS OF PAIN OR NUMBNESS? NO . GASTROENTEROLOGY: ANY NEW CHANGE IN BOWEL CONTROL? NO . GENITOURINARY: ANY NEW CHANGE IN BLADDER CONTROL? NO . IS THERE A CHANCE YOU COULD BE ? NO . HEMATOLOGY/LYMPH: DO YOU TAKE ANY BLOOD THINNERS? (FOR EXAMPLE- COUMADIN, PLAVIX, AGGRENOX, PLATEL, PRADAXA, OR XARELTO) NO . WHEN WAS YOUR LAST DOSE? DATE: TIME: . NEUROLOGY: HAVE YOU FALLEN IN THE PAST 6 MONTHS? YES . ANY NEW EXTREMITY NUMBNESS OR WEAKNESS? NO . CARDIOLOGY: DO YOU HAVE A PACEMAKER OR DEFIBRILLATOR? NO . RESPIRATORY: HAVE YOU BEEN SICK IN THE PAST WEEK? NO . FEVER NO . FLU LIKE SYMPTOMS? NO . COUGH NO . INTEGUMENTARY: DO YOU HAVE ANY RASHES OR OPEN SORES? YES, LUPUS FLARE UP ON NOSE, AND WART REMOVED ON THUMB. BOTH HEALING. . ALLERGIC/IMMUNO: ARE YOU ALLERGIC TO SHELLFISH OR IV DYE? NO . ANY NEW ALLERGIES? NO . PSYCHIATRIC: DO YOU HAVE THOUGHTS OF HURTING YOURSELF OR SOMEONE ELSE? NO . ARE YOU ABUSED, NEGLECTED, OR IN AN UNSAFE ENVIRONMENT? NO . ENDOCRINOLOGY: ARE YOU DIABETIC? NO . OTHER: DO YOU NEED ANY PRESCRIPTIONS? NO . IF YES, PLEASE LIST: ____ . ANY NEW PROBLEMS WITH YOUR MEDICATIONS? NO . WHEN DID YOU LAST EAT? 07-24-16 1900 . WHEN DID YOU LAST DRINK? 07-25-16 1000 . WHAT DID YOU LAST DRINK? TEA & WATER . NAME OF PERSON DRIVING YOU HOME? TANIKA- . DO YOU HAVE ANY OTHER QUESTIONS OR CONCERNS YES, PT WAS PLACED ON MAGNESIUM AND THAT IS HELPING THE CONTRACTORS OF HER HAND. ALSO HAD CYSTS REMOVED FROM HER HEAD. STITCHES ARE OUT. . REVIEWED BY: PROVIDER: . VITAL SIGNS WT 207 LBS, HT 70 IN, BMI 29.70 INDEX, BP 129/60 MM HG, HR 97 /MIN, RR 16 /MIN, TEMP 96.1 F, OXYGEN SAT % 98, NA INITIALS TL 1142, REVIEWED BY: CM. ASSESSMENTS MYALGIA - M79.1 (PRIMARY) PROCEDURES PN TRIGGER POINT INJECTION WITH STEROIDS PRE PROCEDURE DIAGNOSIS 1. MYALGIA 2. PAIN AT BILATERAL SHOULDER AREA, BILATERAL THORACIC AREA, AND BILATERAL LOWER BACK AREA. POST PROCEDURE DIAGNOSIS 1. MYALGIA 2. PAIN AT BILATERAL SHOULDER AREA, BILATERAL THORACIC AREA, AND BILATERAL LOWER BACK AREA. PROCEDURE TRIGGER POINT INJECTION AT BILATERAL SHOULDER AREA, BILATERAL THORACIC AREA, AND BILATERAL LOWER BACK AREA. SURGEON DR. MARYJANE ETIENNE GLASS CUTTER NONE ANESTHESIA LOCAL PRE PROCEDURE NOTE THE PATIENT HAS A HISTORY OF CHRONIC PAIN AT THE RIGHT AND LEFT SHOULDER AREA, RIGHT AND LEFT THORACIC AREA, AND RIGHT AND LEFT LOWER BACK AREA. I EVALUATE THE PATIENT AND REVIEWED THE CHART. THERE IS EVIDENCE OF BANDS OF TISSUE WITH RESTRICTION OF MOVEMENT AND PRESENCE OF TRIGGER POINT AT THE AFFECTED AREA. I WENT OVER THE RISKS, ALTERNATIVES, AND BENEFITS ASSOCIATED WITH THIS PROCEDURE. THE PATIENT WOULD LIKE TO PROCEED AND GIVE CONSENT TO PERFORMED THE PROCEDURE. THE PATIENT DENIES UNEXPLAINABLE WEIGHT LOSS, FEVER, CHILLS, OR NEW CHANGES IN URINARY OR BOWEL CONTROL DESCRIPTION OF PROCEDURE THE PATIENT WAS BROUGHT TO THE PROCEDURE ROOM AND PLACED IN THE SITTING POSITION. THE AREA WAS CLEANED WITH ALCOHOL. THE PROCEDURE WAS DONE USING ASEPTIC STERILE TECHNIQUE. I CHECKED LATERALITY AND THE LEVEL WHERE THE PROCEDURE WAS GOING TO BE PERFORMED WITH THE PATIENT AND THE SUPPORTING STAFF AT THE MOMENT OF THE TIME OUT IN THE PROCEDURE ROOM. USING A 25-GAUGE NEEDLE, TRIGGER POINTS WERE INJECTED AT THE RIGHT AND LEFT SHOULDER AREA, RIGHT AND LEFT THORACIC AREA, AND RIGHT AND LEFT LOWER BACK AREA. WITH A TOTAL OF 40 ML OF BUPIVACAINE 0.25% AND KENALOG 40 MG. THERE WAS NO EVIDENCE OF BLOOD, PARESTHESIA OR CEREBROSPINAL FLUID DURING THE PROCEDURE. THE PATIENT WAS SENT TO THE RECOVERY ROOM. THE PATIENT WAS MOVING THE EXTREMITIES AND DOING WELL. THERE WAS NO COMPLICATION DURING THE PROCEDURE POST PROCEDURE NOTE THE PATIENT WILL BE SEEN IN A FOLLOW UP IN THE NEXT FEW WEEKS. INSTRUCTIONS WERE GIVEN, QUESTIONS WERE ANSWERED, AND THE PATIENT EXPRESSED UNDERSTANDING AND AGREES WITH THE PLAN. INSTRUCTIONS WERE GIVEN, QUESTIONS WERE ANSWERED, PATIENT REPORTS UNDERSTANDING AND AGREES WITH THE PLAN. I, DARYL INGRAM, DOCUMENTED THE ABOVE INFORMATION ACTING A SCRIBE FOR DR. ETIENNE. I HAVE REVIEWED THE ABOVE DOCUMENT, WRITTEN BY DARYL BARRYIBPeggy AND I VERIFY THAT IT IS ACCURATE. PROCEDURE CODES 41745 INJECT TRIGGER POINTS 3/> DISPOSITION & COMMUNICATION FOLLOW UP 3 WEEKS ELECTRONICALLY SIGNED BY MARYJANE ETIENNE MD ON 07/30/2016 AT 01:06 PM EDT DISCLAIMER : THIS IS A VISIT SUMMARY EXTRACTED FROM THE [employer] CHART. IT IS NOT A COPY OF THE [employer] PROGRESS NOTE. [employer]
== END ==
LOC: M PAIN 11:20
PROVIDERS: ATTEND Anesthesiology
DX: G89.29 Other chronic pain (principal); M79.1 Myalgia; M25.511 Pain in right shoulder; M25.512 Pain in left shoulder; M54.5 Low back pain; M54.6 Pain in thoracic spine; M32.9 Systemic lupus erythematosus, unspecified; G90.50 Complex regional pain syndrome I, unspecified; F41.9 Anxiety disorder, unspecified; G47.00 Insomnia, unspecified; M19.90 Unspecified osteoarthritis, unspecified site; F43.10 Post-traumatic stress disorder, unspecified; G56.03 Carpal tunnel syndrome, bilateral upper limbs; Z88.8 Allergy status to other drugs, medicaments and biological substances; Z79.891 Long term (current) use of opiate analgesic; Z79.52 Long term (current) use of systemic steroids; Z79.899 Other long term (current) drug therapy
CPT/HCPCS: 20553; J3301